=== PATIENT | male | born 1950 | race Caucasian/White ===

== ENCOUNTER 2021-05-04 07:55 | Day surgery (SDC) | payer MEDICARE, SELFPAY ==
--- NOTE | 2021-05-04 08:23 | SUR.OPER ---
Supine on eye stretcher, head on extension cradle secured with tape. Arms tucked at sides with blanket. Pillow under knees.
[2021-05-04] MEDS: PROPARACAINE 0.5% OPHTH SOL 2 DROPS EYE-OP (08:43)
[2021-05-04] MEDS: CATARACT EYE COMPOUND (10 DROPS/SYRINGE) 3 DROPS EYE-OP (08:44)
[2021-05-04 08:47] VITALS: BP 136/85; PULSE 59; RESP 14; TEMP 36.4; O2SAT 110
[2021-05-04 08:48] VITALS: BMI 29.2
[2021-05-04 09:13] VITALS: BMI 29.2
--- NOTE | 2021-05-04 09:24 | PM.PREOP ---
Pre-operative Note Interval Note History & Physical reviewed/Exam performed by Physician: Yes Changes to H&P: No H&P completed within 30 days and has changed as indicated here:: There are no non surgical alternatives to patients condition. Delay will result in continued deterioration of patients condition. Delay can result in more complex future surgery. Increased loss of function is expected.
--- NOTE | 2021-05-04 09:28 | PM.OP.1 ---
Operative Date/Time/Diagnoses Pre-op diagnosis: Nuclear Cataract Left eye Post-op diagnosis: same Procedure & Clinicians Same procedure as scheduled: Yes Surgeon: Jomar Nagy Anesthesia Type: MAC +/- and Sedation Operative Notes Procedure in detail: Patient brought to the operating suite. Tetracaine drops placed in the left eye. Patient was prepped and draped in sterile manner. Wire lid speculum was placed in the eye. Betadine drops were placed on the eye. This was irrigated. Lidocaine jelly was placed on the eye. A paracentesis port was created with a side-port blade. 0.1 mL 1% preservative free lidocaine was injected into the anterior chamber. The anterior chamber was deepened with viscoelastic. 2.6 mm keratome was used to create a temporal clear corneal incision. Cystotome and Utrata forceps were used to create continuous tear capsulorrhexis. Balanced salt solution was used to hydro dissect the nucleus. The phacoemulsification handpiece was inserted and the nucleus was removed using the stop and chop technique. The irrigation aspiration handpiece was inserted and the remaining cortex was removed. Anterior chamber was deepened with viscoelastic. An Griggs DIB00 intraocular lens with a power of 20.0 was injected into the capsular bag. Irrigation aspiration handpiece was inserted and the remaining viscoelastic was removed. Incision was hydrated with balanced salt solution and found to be leak free with pressure with Weck-Maria Isabel sponges. 0.1 mL Vigamox injected anterior chamber. 0.3 mL Kenalog 10 mg was injected subconjunctivally. Lid speculum was removed. The patient left the operating room in excellent condition. Complications: none Post-operative Condition: stable Disposition: same day surgery
[2021-05-04] MEDS: HYALURONATE SODIUM 30 MG-10 MG/ML SYRINGES 1 BOX INTRAOCULA (09:36)
[2021-05-04] MEDS: MOXIFLOXACIN INJ 4 MG/0.8 ML VIAL 0.5 MG EYE-OP (09:36)
[2021-05-04] MEDS: PHENYLEPHRINE/LIDOCAINE VIAL (OR) 0.2 ML EYE-OP ×2 (09:37)
[2021-05-04] MEDS: LIDOCAINE 2% (GLYDO) 6 ML GEL TOP (09:38)
[2021-05-04] MEDS: BALANCED SALT IRRIG SOLN NO.2 500 ML, EPINEPHrine 1 MG IRR (09:38)
[2021-05-04] MEDS: TETRACAINE 0.5% OPHTH DROPS 4 ML 2 DROPS EYE-OP (09:39)
[2021-05-04 09:55] VITALS: BP 119/79; PULSE 60; RESP 16; TEMP 36.7; O2SAT 97
--- NOTE | 2021-05-04 10:10 | SUR.PHASEII ---
Patient was received back to [facility] by Carter Andrade RN. She spoke with patient and gave him fluids. Care assumed by fountain clerk at 0955. Stable, see documentation
== END 2021-05-04 10:06 | disposition home or self-care (01) ==
PROVIDERS: PCP Family Medicine; Referring Provider Ophthalmology; Visit Provider Ophthalmology
PROC: (CPT 66984; principal; 2021-05-04 09:45)
DX: H25.12 Age-related nuclear cataract, left eye (principal); F43.10 Post-traumatic stress disorder, unspecified; G51.0 Bell's palsy
CPT/HCPCS: 66984; J0171; J2250

== ENCOUNTER → 2021-05-17 14:15 | Outpatient (CLI) | payer MEDICARE, SELFPAY ==
[2021-05-17 15:54] LABS: COVID19 -Nasal RAPID Negative (Negative)
== END ==
PROVIDERS: PCP Family Medicine; Referring Provider Family Medicine Sleep Medicine; Visit Provider Family Medicine Sleep Medicine
DX: Z20.822 Contact with and (suspected) exposure to COVID-19 (principal)
CPT/HCPCS: 87635; C9803

== ENCOUNTER 2021-05-18 07:29 | Day surgery (SDC) | payer MEDICARE, SELFPAY ==
[2021-05-18] MEDS: PROPARACAINE 0.5% OPHTH SOL 2 DROPS EYE-OP (07:44)
[2021-05-18 07:46] VITALS: BP 129/75; PULSE 53; RESP 16; TEMP 36.3; O2SAT 99; BMI 29.2
[2021-05-18] MEDS: CATARACT EYE COMPOUND (10 DROPS/SYRINGE) 3 DROPS EYE-OP (07:51)
--- NOTE | 2021-05-18 09:00 | P.OP.PRE_ITS ---
Pre-operative Note Interval Note History & Physical reviewed/Exam performed by Physician: Yes Changes to H&P: No Addendum Addendum Note: There are no non surgical alternatives to the patient's condition. Deteriora tion of the patient's condition is expected. Delay may result in more complex future surgery.
--- NOTE | 2021-05-18 09:01 | PM.OP.1 ---
Operative Date/Time/Diagnoses Pre-op diagnosis: Nuclear cataract right eye Procedure & Clinicians Procedure: Cataract Surgery Same procedure as scheduled: Yes Surgeon: Jomar Nagy Anesthesia Type: MAC +/- and Sedation Operative Notes Procedure in detail: Patient brought to the operating suite. Tetracaine drops placed in the right eye. Patient was prepped and draped in sterile manner. Wire lid speculum was placed in the eye. Betadine drops were placed on the eye. This was irrigated. Lidocaine jelly was placed on the eye. A paracentesis port was created with a side-port blade. 0.1 mL 1% preservative free lidocaine was injected into the anterior chamber. The anterior chamber was deepened with viscoelastic. 2.6 mm keratome was used to create a temporal clear corneal incision. Cystotome and Utrata forceps were used to create continuous tear capsulorrhexis. Balanced salt solution was used to hydro dissect the nucleus. The phacoemulsification handpiece was inserted and the nucleus was removed using the stop and chop technique. The irrigation aspiration handpiece was inserted and the remaining cortex was removed. Anterior chamber was deepened with viscoelastic. An Griggs DIB00 intraocular lens with a power of 19.5 was injected into the capsular bag. Irrigation aspiration handpiece was inserted and the remaining viscoelastic was removed. Incision was hydrated with balanced salt solution and found to be leak free with pressure with Weck-Maria Isabel sponges. 0.1 mL Vigamox injected anterior chamber. 0.3 mL Kenalog 10 mg was injected subconjunctivally. Lid speculum was removed. The patient left the operating room in excellent condition. Complications: none Post-operative Condition: stable Disposition: same day surgery
--- NOTE | 2021-05-18 09:17 | SUR.OPER ---
Supine on eye stretcher, head on extension cradle secured with tape. Arms tucked at sides with blanket. Pillow under knees.
[2021-05-18] MEDS: MOXIFLOXACIN INJ 4 MG/0.8 ML VIAL 0.5 MG EYE-OP (09:22)
[2021-05-18] MEDS: HYALURONATE SODIUM 30 MG-10 MG/ML SYRINGES 1 BOX INTRAOCULA (09:22)
[2021-05-18] MEDS: BALANCED SALT IRRIG SOLN NO.2 500 ML, EPINEPHrine 1 MG IRR (09:22)
[2021-05-18] MEDS: TRIAMCINOLONE 50 MG/5 ML VIAL INJ (09:22)
[2021-05-18] MEDS: PHENYLEPHRINE/LIDOCAINE VIAL (OR) 0.2 ML EYE-OP (09:22)
[2021-05-18] MEDS: LIDOCAINE 2% (GLYDO) 6 ML GEL TOP (09:23)
[2021-05-18] MEDS: TETRACAINE 0.5% OPHTH DROPS 4 ML 2 DROPS EYE-OP (09:23)
[2021-05-18 09:31] VITALS: BP 118/76; PULSE 60; RESP 16; TEMP 36.6; O2SAT 99
--- NOTE | 2021-05-18 09:50 | SUR.PHASEII ---
0948-Patient met criteria for discharge. no complaints of pain/nausea. Iv out. dressed self . has all valubles/belongings. discharge packet and information given to diana along with discharge id card/implant card. ride at er entrance. 0950-Discharged to home with paperwork by wheelchair to wifes care/friends car.
== END 2021-05-18 09:50 | disposition home or self-care (01) ==
PROVIDERS: PCP Family Medicine; Referring Provider Ophthalmology; Visit Provider Ophthalmology
PROC: (CPT 66984; principal; 2021-05-18 09:15)
DX: H25.11 Age-related nuclear cataract, right eye (principal); G51.0 Bell's palsy
CPT/HCPCS: 66984; J0171; J2250; J3301